=== PATIENT | male | born 1975 | race African-American/Black ===

== ENCOUNTER 2016-11-27 20:54 | Emergency (ER) | payer OTHER ==
[2016-11-27 21:00] VITALS: BP 121/83; PULSE 110; TEMP 98.6; BMI 26.9
[2016-11-27] MEDS ORDERED: KETOROLAC TROMETHAMINE 60 MG/2 ML VIAL IM ONE (21:39)
[2016-11-27] MEDS ORDERED: KETOROLAC TROMETHAMINE 60 MG/2 ML VIAL ONE (21:41)
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
== END 2016-11-27 22:05 | disposition home or self-care (01) ==
LOC: JERFT 20:54
PROC: 3E0233Z Introduction of Anti-inflammatory into Muscle, Percutaneous Approach (ICD-10-PCS; principal; 2016-11-27)
DX: M62.830 Muscle spasm of back (principal); V73.0 Driver of bus injured in collision with car, pick-up truck or van in nontraffic accident; Y92.414 Local residential or business street as the place of occurrence of the external cause; Y93.89 Activity, other specified; Y99.9 Unspecified external cause status
CPT/HCPCS: 99281-25

== ENCOUNTER 2018-07-07 14:25 | Emergency (ER) | payer OTHER, BC | END 2018-07-07 18:44 | disposition home or self-care (01) | LOC: JER 14:25 ==